=== PATIENT | male | born 1990 | race Caucasian/White ===

== ENCOUNTER → 2017-04-09 | Outpatient (CLI) | payer OTHER | END | disposition home or self-care (01) | LOC: CFH 10:38 | PROVIDERS: ATTEND Chiropractor | DX: M99.04 Segmental and somatic dysfunction of sacral region (principal); M99.01 Segmental and somatic dysfunction of cervical region; M99.03 Segmental and somatic dysfunction of lumbar region | CPT/HCPCS: 72040; 72072; 72100; 72170 ==